=== PATIENT | female | born 1985 | race Two or more races ===

== ENCOUNTER 2017-03-29 03:46 | Emergency (ER) | payer BC ==
[~2017-03-29] VITALS: Ht 162.6 cm; Wt 147.9 kg
[2017-03-29 06:11] VITALS: BP 146/81
[2017-03-29] MEDS ORDERED: HYDROcodone/APAP 5/325 TABLET PO ONE (06:30)
[2017-03-29] MEDS ORDERED: HYDROcodone/APAP 5/325 TABLET ONE (06:30)
[2017-03-29 07:13] LABS: RAPID INFLUENZA A POSITIVE (Negative); RAPID INFLUENZA B Negative (Negative)
== END 2017-03-29 07:56 | disposition home or self-care (01) ==
LOC: ED 07:50
DX: J09.X2 Influenza due to identified novel influenza A virus with other respiratory manifestations (principal); F17.210 Nicotine dependence, cigarettes, uncomplicated
CPT/HCPCS: 71020; 87400; 99285